=== PATIENT | male | born 1960 | race Caucasian/White ===

== ENCOUNTER 2016-06-19 06:26 | Day surgery (SDC) | payer MEDICAID, OTHER ==
[~2016-06-19] VITALS: Ht 188 cm; Wt 203.3 kg
[~2016-06-19 06:26] MED LIST: ALLO300 PO; ASPI81 PO; ATOR10 PO; AUGM875 PO; GEMF600 PO; GLIP-146 PO; LEVO.05 PO; LEVO200T31 PO; LEVO50TA51 PO; METF-324 PO
[2016-06-19] MEDS ORDERED: LEVO200T4 PO (06:52)
[2016-06-19] MEDS ORDERED: LEVO75TA3 PO (06:52)
[2016-06-19] MEDS ORDERED: NOVORP2 SQ (06:52)
[2016-06-19] MEDS ORDERED: ASPI81CH CHEW (06:52)
[2016-06-19] MEDS ORDERED: CHLO25TA2 PO (06:52)
[2016-06-19] MEDS ORDERED: LOSA50TA PO (06:52)
[2016-06-19] MEDS ORDERED: METO50TA PO (06:52)
[2016-06-19 06:53] VITALS: BP 190/100; PULSE 84; RESP 16; TEMP 98.2; O2SAT 95
[2016-06-19 06:57] LABS: AUTOMATED NEUTROPHIL # 3.8 TH/MM3 (1.8-7.7); BASOPHIL # 0.1 TH/MM3 (0-0.2); EOSINOPHIL # 0.1 TH/MM3 (0-0.4); EOSINOPHIL % 1.3 % (0.0-4.0); HEMATOCRIT 40.8 % (39.0-51.0); HEMO FLAGS DIFF FINAL; LYMPH % 24.6 % (9.0-44.0); LYMPHOCYTE # 1.4 TH/MM3 (1.0-4.8); MEAN CELL VOLUME 84.5 FL (80.0-100.0); MEAN CORPUSCULAR HEMOGLOBIN 29.3 PG (27.0-34.0); MEAN CORPUSCULAR HGB CONC 34.7 % (32.0-36.0); MONO % 7.2 % (0.0-8.0); NEUT % 65.9 % (16.0-70.0); PLATELET COUNT 105 TH/MM3 (150-450); RED BLOOD COUNT 4.82 MIL/MM3 (4.50-5.90); RED CELL DISTRIBUTION WIDTH 14.9 % (11.6-17.2); WHITE BLOOD COUNT 5.8 TH/MM3 (4.0-11.0)
[2016-06-19 07:07] LABS: APTT (PATIENT) 31.3 SEC (24.3-30.1); INTERNATIONAL NORMALIZED RATIO 0.9 RATIO; PROTHROMBIN TIME - PATIENT 10.4 SEC (9.8-11.6)
[2016-06-19] MEDS ORDERED: DIAZEPAM 5 MG TAB PO SCH (07:15)
[2016-06-19] MEDS ORDERED: NS 1000P @30 MLS/HR (KVO) IV SCH (07:15)
[2016-06-19] MEDS ORDERED: diphenhydrAMINE HCL 50 MG CAP PO SCH (07:15)
[2016-06-19] MEDS ORDERED: ASPIRIN 325 MG TAB PO SCH (07:15)
[2016-06-19 07:17] LABS: BICARBONATE 26.1 MEQ/L (21.0-32.0); POTASSIUM 3.7 MEQ/L (3.5-5.1)
[2016-06-19] MEDS ORDERED: HEPARIN-NS/PF INJ 500 ML ONE (09:10)
[2016-06-19] MEDS ORDERED: NITROGLYCERIN INJ 5 ML ONE (09:11)
[2016-06-19] MEDS ORDERED: MIDAZOLAM HCL 2 MG/2 ML VIAL ONE (09:11)
[2016-06-19] MEDS ORDERED: HEPARIN SODIUM - IV 10,000 UNITS/10 ML VIAL ONE (09:11)
[2016-06-19] MEDS ORDERED: VERAPAMIL HCL 5 MG/2 ML VIAL ONE (09:11)
[2016-06-19] MEDS ORDERED: MISC INFORMATION XX ONE (10:00)
[2016-06-19] MEDS ORDERED: SODIUM CHLORIDE 0.9% FLUSH 5 ML FLUSH IVF PRN (10:00)
[2016-06-19] MEDS ORDERED: SODIUM CHLORIDE 0.9% FLUSH 5 ML FLUSH IVF SCH (10:00)
[2016-06-19] MEDS ORDERED: LOSARTAN 50 MG TAB PO SCH (11:00)
[2016-06-19] MEDS ORDERED: METOPROLOL TARTRATE 50 MG TAB PO SCH (11:00)
--- NOTE | 2016-06-19 11:02 | EKG ---
Date Performed: 06/19/2016 Time Performed: 07:12:46 PTAGE: 55 years EKG: Sinus rhythm Left axis deviation Left ventricular hypertrophy Lateral T wave changes are probably due to ventricu lar hypertrophy Compared to previous tracing voltage has increased Abnormal ECG PREVIOUS TRACING : 07/01/2009 07.55 DOCTOR: Pradip Manuel Interpretating Date/Time 06/19/2016 11:01:00
[2016-06-19] MEDS ORDERED: IOHEXOL 350 MG/ML 50 ML BTL (for Cath Lab) OTHER ONE (12:05)
--- NOTE | 2016-06-19 13:21 | MA ---
cc: PRASHANTH ESPINO M.D., MARIA I. M.D. DATE 06/19/2016 PRIMARY CARE PHYSICIAN Prashanth Espino MD INDICATION He is a 55-year-old morbidly obese white male with multiple cardiac risk factors who was found to have a positive nuclear stress test while undergoing presurgical evaluation. PROCEDURES PERFORMED 1. Left cardiac catheterization via right radial approach. 2. Selective coronary angiography. DETAILED PROCEDURE 1% lidocaine to right wrist. Micropuncture needle into radial artery, later exchanged for a 5-Maori sheath. Right coronary angiography obtained with a 5-Maori AR mode catheter. Left coronary angiography obtained with a 5-Maori JL-4 catheter. The patient tolerated the procedure well and left lthe laboratory hemodynamically stable. The radial sheath was removed and good hemostasis was gained with a radial band. HEMODYNAMICS The patient remained in normal sinus rhythm. Aortic pressure was 150/94 with a mean of 119 mmHg. MEDICATIONS 1. Heparin 5000 units IV x 1. 2. Fentanyl 50 mcg IV x 1. 3. Verapamil 2.5 mg intraarterial. 4. Nitroglycerin 200 mcg intraarterial. ANGIOGRAPHY Left main with 0% stenosis. Left anterior descending artery, septal and diagonal branches with 0% stenosis. Circumflex artery and obtuse marginal branches with 0% stenosis. The right coronary artery was a dominant vessel with 0% stenosis. LEFT VENTRICULAR ANGIOGRAM Not performed secondary to Stage II chronic kidney disease. IMPRESSION Angiographically normal coronary arteries. RECOMMENDATIONS 1. Continue risk factor modification with emphasis on cardiac diet and weight loss. 2. No cardiac contraindications to proceed with surgery. MD CHARLI Astorga/EUGENE /9:53 AM /1:18 PM ANANYA
== END 2016-06-19 14:35 | disposition home or self-care (01) ==
LOC: HDOC 06:26 → HDIC 06:26 → HDOC 14:35
PROVIDERS: ATTEND Specialist
DX: R94.39 Abnormal result of other cardiovascular function study (principal); I12.9 Hypertensive chronic kidney disease with stage 1 through stage 4 chronic kidney disease, or unspecified chronic kidney disease; N18.2 Chronic kidney disease, stage 2 (mild); E78.5 Hyperlipidemia, unspecified; E66.9 Obesity, unspecified; Z68.43 Body mass index [BMI] 50.0-59.9, adult
CPT/HCPCS: 80048; 85025; 85610; 85730; 93005; 93454; C1769; C1893; J1644; J2250; J3010; J7030; Q0163; Q9967